=== PATIENT | female | born 1990 | race Two or more races ===

== ENCOUNTER 2023-09-19 05:12 | Inpatient (IN) | payer BC ==
[2023-09-19] MEDS ORDERED: Metoclopramide 10 MG/2 ML SDV IVPUSH ONE (05:29)
[2023-09-19] MEDS ORDERED: Citric Acid/Sodium Citrate Solution 30 ML Cup PO ONE (05:29)
[2023-09-19] MEDS: Lactated Ringers 1,000 ML IV SCH (06:00)
[2023-09-19 06:22] LABS: BASOPHILS PERCENT AUTO 0.4 % (0.0-1.0); EOSINOPHILS ABSOLUTE AUTO 0.4 K/mm3 (0.0-0.4); EOSINOPHILS PERCENT AUTO 4.8 % (0.0-6.0); HEMATOCRIT 30.1 % (37.0-47.0); HEMOGLOBIN 9.4 gm/dl (12.0-16.0); IMMATURE GRAN ABSOLUTE AUTO 0.05 K/mm3 (0.00-0.05); IMMATURE GRAN PERCENT AUTO 0.5 % (0.0-0.4); LYMPHOCYTES ABSOLUTE AUTO 2.8 K/mm3 (1.0-4.8); LYMPHOCYTES PERCENT AUTO 30.4 % (24.0-44.0); MEAN CORPUSCULAR HEMOGLOBIN 26.3 pg (28.0-32.0); MEAN CORPUSCULAR HGB CONC 31.2 g/dl (32.0-36.0); MEAN CORPUSCULAR VOLUME 84.3 fl (83.0-99.0); MEAN PLATELET VOLUME 9.8 fl (9.4-12.3); MONOCYTES ABSOLUTE AUTO 0.7 K/mm3 (0.0-0.8); MONOCYTES PERCENT AUTO 7.4 % (0.0-8.0); NEUTROPHILS ABSOLUTE AUTO 5.1 K/mm3 (1.8-7.7); NEUTROPHILS PERCENT AUTO 56.5 % (41.0-71.0); PLATELET COUNT,PLT 241 K/mm3 (150-400); RED BLOOD CELL COUNT 3.57 M/mm3 (4.10-5.30)
[2023-09-19] MEDS ORDERED: ceFAZolin 1 GM in Sodium Chloride 0.9% 50 ML IV ONE (07:00)
[2023-09-19] MEDS ORDERED: Morphine PF 10 MG/10 ML SDV ONE (07:17)
[2023-09-19] MEDS ORDERED: ceFAZolin 2 GM Vial ONE (07:17)
[2023-09-19] MEDS ORDERED: Phenylephrine 1% 10 MG/ML SDV ONE (07:18)
[2023-09-19] MEDS: Citric Acid/Sodium Citrate Solution 30 ML Cup PO ONE (07:30)
[2023-09-19] MEDS ORDERED: ceFAZolin 2 GM in Sodium Chloride 0.9% 50 ML IV ONE (07:30)
[2023-09-19] MEDS: Metoclopramide 10 MG/2 ML SDV IV ONE (07:30)
[2023-09-19] MEDS ORDERED: Ondansetron 4 MG/2 ML SDV ONE (07:57)
[2023-09-19] MEDS ORDERED: Oxytocin/0.9 % Sodium Chloride 30 UNIT/500 ML BAG IV SCH (08:00)
[2023-09-19] MEDS ORDERED: Lactated Ringers 1,000 ML ONE (08:09)
[2023-09-19] MEDS ORDERED: fentaNYL 100 MCG/2 ML SDV ONE (08:16)
[2023-09-19] MEDS ORDERED: Ketorolac 30 MG/ML SDV ONE (08:20)
[2023-09-19] MEDS ORDERED: diphenhydrAMINE 50 MG/ML SDV IVPUSH PRN ×2 (08:42→10:20)
[2023-09-19] MEDS ORDERED: fentaNYL 100 MCG/2 ML SDV IVPUSH PRN (08:42)
[2023-09-19] MEDS ORDERED: Naloxone 0.4 MG/ML SDV IVPUSH PRN (10:20)
[2023-09-19] MEDS ORDERED: ePHEDrine 50 MG/ML SDV IVPUSH PRN (10:20)
[2023-09-19] MEDS ORDERED: Acetaminophen/oxyCODONE 325-5 MG Tab PO PRN ×2 (10:20)
[2023-09-19] MEDS ORDERED: Ondansetron 4 MG/2 ML SDV IV PRN (10:20)
[2023-09-19] MEDS: Ondansetron 4 MG/2 ML SDV IVPUSH PRN ×2 (12:14→18:15)
[2023-09-19] MEDS: Dextrose 5%-Lactated Ringers 1,000 ML IV SCH (12:25)
[2023-09-19] MEDS: Ketorolac 30 MG/ML SDV IVPUSH SCH (14:57)
[2023-09-19] MEDS: Promethazine 25 MG Tab PO PRN (15:40)
[2023-09-20 06:34] LABS: HEMATOCRIT 30.6 % (37.0-47.0); HEMOGLOBIN 9.3 gm/dl (12.0-16.0); MEAN CORPUSCULAR HEMOGLOBIN 26.3 pg (28.0-32.0); MEAN CORPUSCULAR HGB CONC 30.4 g/dl (32.0-36.0); MEAN CORPUSCULAR VOLUME 86.7 fl (83.0-99.0); MEAN PLATELET VOLUME 10.4 fl (9.4-12.3); PLATELET COUNT,PLT 231 K/mm3 (150-400); RED BLOOD CELL COUNT 3.53 M/mm3 (4.10-5.30); WHITE BLOOD CELL COUNT,WBC 9.77 K/mm3 (3.9-11.3)
[2023-09-20] MEDS: Ibuprofen 600 MG Tab PO SCH (09:30)
== END 2023-09-20 13:06 | disposition home or self-care (01) | DRG 540 ==
LOC: JD.OB 05:13
PROVIDERS: ADMIT Obstetrics & Gynecology; ATTEND Obstetrics & Gynecology
PROC: 10D00Z1 Extraction of Products of Conception, Low, Open Approach (ICD-10-PCS; principal; 2023-09-19 08:00)
DX: O24.420 Gestational diabetes mellitus in childbirth, diet controlled (principal); Z3A.39 39 weeks gestation of pregnancy; Z37.0 Single live birth; O99.214 Obesity complicating childbirth; O34.211 Maternal care for low transverse scar from previous cesarean delivery
CPT/HCPCS: 36415; 59025; 82947; 85025; 85027; 86592; 86850; 86900; 86901; A9270-GY; J0690; J1885; J2274; J2371; J2405; J2765; J3010; J7120; J7121; J8597

== ENCOUNTER 2024-05-06 16:11 | Emergency (ER) | payer BC ==
[2024-05-06 19:03] LABS: BASOPHILS ABSOLUTE AUTO 0.1 K/mm3 (0.0-0.2); BASOPHILS PERCENT AUTO 0.5 % (0.0-1.0); EOSINOPHILS ABSOLUTE AUTO 0.5 K/mm3 (0.0-0.4); EOSINOPHILS PERCENT AUTO 3.7 % (0.0-6.0); HEMATOCRIT 44.3 % (37.0-47.0); HEMOGLOBIN 14.7 gm/dl (12.0-16.0); IMMATURE GRAN ABSOLUTE AUTO 0.03 K/mm3 (0.00-0.05); IMMATURE GRAN PERCENT AUTO 0.2 % (0.0-0.4); LYMPHOCYTES ABSOLUTE AUTO 3.8 K/mm3 (1.0-4.8); LYMPHOCYTES PERCENT AUTO 29.4 % (24.0-44.0); MEAN CORPUSCULAR HEMOGLOBIN 32.8 pg (28.0-32.0); MEAN CORPUSCULAR HGB CONC 33.2 g/dl (32.0-36.0); MEAN CORPUSCULAR VOLUME 98.9 fl (83.0-99.0); MEAN PLATELET VOLUME 9.7 fl (9.4-12.3); MONOCYTES ABSOLUTE AUTO 0.7 K/mm3 (0.0-0.8); MONOCYTES PERCENT AUTO 5.6 % (0.0-8.0); NEUTROPHILS ABSOLUTE AUTO 7.8 K/mm3 (1.8-7.7); NEUTROPHILS PERCENT AUTO 60.6 % (41.0-71.0); PLATELET COUNT,PLT 233 K/mm3 (150-400); RED BLOOD CELL COUNT 4.48 M/mm3 (4.10-5.30); WHITE BLOOD CELL COUNT,WBC 12.81 K/mm3 (3.9-11.3)
[2024-05-06 20:18] LABS: A/G RATIO 0.9 (1-2); ALBUMIN 3.7 g/dl (3.4-5.0); ANION GAP 11.7 (5-15); BILIRUBIN TOTAL 0.2 mg/dL (0.2-1.0); CREATININE 0.6 mg/dL (0.55-1.02); EST CRCL DRUG DOSING (CG) 115.16 mL/min; POTASSIUM,K 3.7 mEq/L (3.5-5.1); PROTEIN TOTAL,TP 7.8 g/dl (6.4-8.2)
== END 2024-05-06 21:05 | disposition home or self-care (01) ==
LOC: JD.ED 16:11
DX: O20.9 Hemorrhage in early pregnancy, unspecified (principal); Z3A.09 9 weeks gestation of pregnancy; Z79.899 Other long term (current) drug therapy
CPT/HCPCS: 36415; 76817; 76817-26; 80053; 84702; 85025; 99283; 99284

== ENCOUNTER 2024-12-10 05:46 | Inpatient (IN) | payer BC ==
[~2024-12-10 05:46] MED LIST: Lactated Ringers 1,000 ML IV SCH; Oxytocin/0.9 % Sodium Chloride 30 UNIT/500 ML BAG IV SCH; Sodium Chloride 0.9% 10 ML Syringe FLUSH PRN; Sodium Chloride 0.9% 10 ML Syringe FLUSH SCH
[2024-12-10 06:10] LABS: BASOPHILS ABSOLUTE AUTO 0.1 K/mm3 (0.0-0.2); BASOPHILS PERCENT AUTO 0.6 % (0.0-1.0); EOSINOPHILS ABSOLUTE AUTO 0.4 K/mm3 (0.0-0.4); EOSINOPHILS PERCENT AUTO 4.0 % (0.0-6.0); IMMATURE GRAN ABSOLUTE AUTO 0.03 K/mm3 (0.00-0.05); IMMATURE GRAN PERCENT AUTO 0.3 % (0.0-0.4); LYMPHOCYTES ABSOLUTE AUTO 2.9 K/mm3 (1.0-4.8); LYMPHOCYTES PERCENT AUTO 32.8 % (24.0-44.0); MEAN PLATELET VOLUME 10.4 fl (9.4-12.3); MONOCYTES ABSOLUTE AUTO 0.5 K/mm3 (0.0-0.8); MONOCYTES PERCENT AUTO 6.1 % (0.0-8.0); NEUTROPHILS ABSOLUTE AUTO 4.9 K/mm3 (1.8-7.7); NEUTROPHILS PERCENT AUTO 56.2 % (41.0-71.0); NRBC ABSOLUTE 0.00 (0.00-0.02); NRBC PERCENT 0.0 % (0.0-0.2); PLATELET COUNT,PLT 160 K/mm3 (150-400); RED BLOOD CELL COUNT 4.66 M/mm3 (4.10-5.30); WHITE BLOOD CELL COUNT,WBC 8.76 K/mm3 (3.9-11.3)
[2024-12-10] MEDS: Lactated Ringers 1,000 ML IV SCH (06:12)
[2024-12-10] MEDS: Citric Acid/Sodium Citrate Solution 30 ML Cup PO ONE (07:12)
[2024-12-10] MEDS ORDERED: HYDROmorphone 2 MG/ML SDV ONE (07:17)
[2024-12-10] MEDS ORDERED: Ondansetron 4 MG/2 ML SDV ONE (07:59)
[2024-12-10] MEDS ORDERED: Phenylephrine 1% 10 MG/ML SDV ONE (07:59)
[2024-12-10] MEDS ORDERED: Ketorolac 30 MG/ML SDV ONE (08:30)
[2024-12-10 09:13] LABS: HEPATITIS C AB NON-REACTIVE (Non-React)
[2024-12-10 09:14] LABS: HIV RAPID SCREEN RLFX COMFIRM NON-REACTIVE (Non-React)
[2024-12-10] MEDS ORDERED: ePHEDrine 50 MG/ML SDV IVPUSH PRN (09:49)
[2024-12-10] MEDS ORDERED: Naloxone 0.4 MG/ML SDV IVPUSH PRN (09:49)
[2024-12-10] MEDS ORDERED: Ondansetron 4 MG/2 ML SDV IV PRN (09:49)
[2024-12-10] MEDS ORDERED: Sodium Chloride 0.9% 10 ML Syringe FLUSH PRN (09:49)
[2024-12-10] MEDS ORDERED: diphenhydrAMINE 50 MG/ML SDV IVPUSH PRN (09:49)
[2024-12-10] MEDS: Ketorolac 30 MG/ML SDV IVPUSH SCH (14:18)
[2024-12-10] MEDS: Lactated Ringers 1,000 ML IV ONE (16:44)
[2024-12-10 16:56] LABS: BASOPHILS ABSOLUTE AUTO 0.0 K/mm3 (0.0-0.2); BASOPHILS PERCENT AUTO 0.3 % (0.0-1.0); EOSINOPHILS ABSOLUTE AUTO 0.2 K/mm3 (0.0-0.4); EOSINOPHILS PERCENT AUTO 1.8 % (0.0-6.0); IMMATURE GRAN ABSOLUTE AUTO 0.02 K/mm3 (0.00-0.05); IMMATURE GRAN PERCENT AUTO 0.2 % (0.0-0.4); LYMPHOCYTES ABSOLUTE AUTO 3.5 K/mm3 (1.0-4.8); LYMPHOCYTES PERCENT AUTO 29.9 % (24.0-44.0); MEAN PLATELET VOLUME 10.8 fl (9.4-12.3); MONOCYTES ABSOLUTE AUTO 0.5 K/mm3 (0.0-0.8); MONOCYTES PERCENT AUTO 4.6 % (0.0-8.0); NEUTROPHILS ABSOLUTE AUTO 7.4 K/mm3 (1.8-7.7); NEUTROPHILS PERCENT AUTO 63.2 % (41.0-71.0); NRBC ABSOLUTE 0.00 (0.00-0.02); NRBC PERCENT 0.0 % (0.0-0.2); PLATELET COUNT,PLT 145 K/mm3 (150-400); RED BLOOD CELL COUNT 3.37 M/mm3 (4.10-5.30); WHITE BLOOD CELL COUNT,WBC 11.64 K/mm3 (3.9-11.3)
[2024-12-11 05:41] LABS: MEAN PLATELET VOLUME 10.5 fl (9.4-12.3); NRBC ABSOLUTE 0.00 (0.00-0.02); NRBC PERCENT 0.0 % (0.0-0.2); PLATELET COUNT,PLT 143 K/mm3 (150-400); RED BLOOD CELL COUNT 2.97 M/mm3 (4.10-5.30); WHITE BLOOD CELL COUNT,WBC 13.45 K/mm3 (3.9-11.3)
[2024-12-11] MEDS: Prenatal Multivitamin with Calcium/Folic Acid/Iron Tab PO SCH (08:25)
[2024-12-13 11:46] LABS: HEP B SURFACE AG Negative (Negative)
== END 2024-12-11 16:45 | disposition home or self-care (01) | DRG 560 ==
LOC: JD.OB 05:46
PROVIDERS: ADMIT Obstetrics & Gynecology; ATTEND Obstetrics & Gynecology
PROC: 10E0XZZ Delivery of Products of Conception, External Approach (ICD-10-PCS; principal; 2024-12-10 07:30)
DX: O24.420 Gestational diabetes mellitus in childbirth, diet controlled (principal); Z3A.39 39 weeks gestation of pregnancy; Z37.0 Single live birth; O34.211 Maternal care for low transverse scar from previous cesarean delivery; O99.214 Obesity complicating childbirth; Z79.899 Other long term (current) drug therapy
CPT/HCPCS: 01961; 36415; 59025; 82947; 85025; 85027; 86592; 86803; 86850; 86900; 86901; 87340; A9270-GY; G0433; J0690; J1171; J1885; J2371; J2405; J2765; J7120; J7121